=== PATIENT | female | born 1955 | race Caucasian/White ===

== ENCOUNTER 2018-10-07 21:56 | Emergency (ER) | payer BC ==
[2018-10-07] MEDS ORDERED: Ketorolac 30 MG/ML SDV IVPUSH ONE (22:10)
[2018-10-07] MEDS ORDERED: HYDROmorphone 0.5 MG/0.5 ML Syringe IVPUSH ONE ×2 (22:10→23:27)
[2018-10-07] MEDS ORDERED: Sodium Chloride 0.9% 10 ML Syringe FLUSH PRN (22:10)
--- NOTE | 2018-10-07 22:38 | EDM.PDOC ---
ED HPI GENERAL MEDICAL PROBLEM - General Chief Complaint: Back Pain or Injury Stated Complaint: BACK HURTS NOT AN ACCIDENT Time Seen by Provider: 10/07/18 22:10 Source of Information: Reports: Patient, Family History Limitations: Reports: No Limitations - History of Present Illness INITIAL COMMENTS - FREE TEXT/NARRATIVE: 63-year-old female with very intense right flank pain and thoracic spine pain. She had a dull ache in her back for a majority of the day, and tonight had a sudden increase in severe pain. No trauma. No urinary symptoms, shortness of breath or fever. She is extremely uncomfortable. It's painful to move. Also painful to breathe. She is currently being treated for a fungal infection in her lungs. Location: Reports: Back (Right flank) Severity: Severe Associated Symptoms: Reports: No Other Symptoms Flank Pain Score (Numeric/FACES): 10 - Related Data Allergies Allergy/AdvReac Type Severity Reaction Status Date / Time Penicillins Allergy Rash Verified 01/18/15 08:07 Home Meds: Home Meds Acetaminophen [Tylenol Arthritis Pain] 500 mg PO DAILY 10/07/18 [History] Albuterol [Ventolin 2 MG/5 ML] 3 ml INH ASDIRECTED 10/07/18 [History] Albuterol [Ventolin HFA] 10/07/18 [History] Aspirin 325 mg PO DAILY 10/07/18 [History] Calcium Carbonate [Calci-Chew] 500 mg PO DAILY 10/07/18 [History] Celecoxib 200 mg PO BID 10/07/18 [History] Doxycycline [Vibramycin] 50 mg PO DAILY 10/07/18 [History] Fluticasone/Salmeterol [Advair Hfa 230-21 Mcg Inhaler] 2 puff INH BID 10/07/18 [ History] L.acidoph,Paracasei, B.lactis [Probiotic] 1 cap PO DAILY 10/07/18 [History] Lutein 20 mg PO DAILY 10/07/18 [History] Multivitamin [One Daily] 1 tab PO DAILY 10/07/18 [History] Posaconazole [Noxafil] 300 mg PO DAILY 10/07/18 [History] Ranitidine HCl [Zantac] 150 mg PO BID 10/07/18 [History] Past Medical History Respiratory History: Reports: Asthma Other Respiratory History: nodules. Aspergillosis Genitourinary History: Reports: Renal Calculus Musculoskeletal History: Reports: Osteoarthritis - Past Surgical History Musculoskeletal Surgical History: Reports: Knee Replacement Social & Family History - Tobacco Use Smoking Status *Q: Never Smoker - Caffeine Use Caffeine Use: Reports: None - Recreational Drug Use Recreational Drug Use: No ED ROS GENERAL - Review of Systems Review Of Systems: See Below Constitutional: Denies: Fever, Chills Respiratory: Reports: Shortness of Breath, Cough, Other (History of asthma and a fungal infection in her lungs) Cardiovascular: Denies: Chest Pain GI/Abdominal: Reports: Other (Reflux, esophageal burning for the last several days). Denies: Nausea, Vomiting : Reports: Flank Pain. Denies: Dysuria, Frequency, Urgency Musculoskeletal: Reports: Back Pain, Other (Bilateral knee replacement last fall ) Skin: Reports: No Symptoms. Denies: Rash Neurological: Denies: Headache, Paresthesia Psychiatric: Reports: No Symptoms ED EXAM, UPPER BACK/NECK PAIN - Physical Exam Exam: See Below Exam Limited By: No Limitations General Appearance: Alert, Severe Distress (Initially on arrival she couldn't get comfortable, significant pain) Head Exam: Atraumatic Cardiovascular/Respiratory: Regular Rate, Rhythm GI/Abdominal: Tender (Very tender to palpation across the right abdomen, guarding but no rebound tenderness or left-sided abdominal pain) Back Exam: Other (Exquisitely tender to palpation along the right parathoracic spine muscles) Neurologic: Alert, Oriented x 3 Psychiatric: Anxious Skin Exam: Normal Color, Warm/Dry, Other (No rash over the painful area) Course - Vital Signs Last Recorded V/S: Last Vital Signs Temp 97.5 F 10/07/18 22:22 Pulse 86 10/07/18 22:45 Resp 18 10/07/18 22:45 BP 148/80 H 10/07/18 22:45 Pulse Ox 97 10/07/18 22:45 - Orders/Labs/Meds Orders: Active Orders 24 hr Category Date Time Status Saline Lock Insert [OM.PC] Routine Oth 10/07/18 22:10 Ordered Labs: Laboratory Tests 10/07/18 10/07/18 Range/Units 22:20 22:20 WBC 12.6 H (4.5-11.0) K/uL RBC 4.30 (3.30-5.50) M/uL Hgb 12.7 (12.0-15.0) g/dL Hct 40.0 (36.0-48.0) % MCV 93 (80-98) fL MCH 30 (27-31) pg MCHC 32 (32-36) % Plt Count 260 (150-400) K/uL Neut % (Auto) 81 H (36-66) % Lymph % (Auto) 8 L (24-44) % [place] % (Auto) 11 H (2-6) % Eos % (Auto) 1 L (2-4) % Baso % (Auto) 0 (0-1) % Sodium 140 (140-148) mmol/L Potassium 4.3 (3.6-5.2) mmol/L Chloride 103 (100-108) mmol/L Carbon Dioxide 27 (21-32) mmol/L Anion Gap 9.8 (5.0-14.0) mmol/L BUN 25 H (7-18) mg/dL Creatinine 0.7 (0.6-1.0) mg/dL Est Cr Clr Drug Dosing 60.43 mL/min Estimated GFR (MDRD) > 60 (>60) Glucose 138 H (74-106) mg/dL Calcium 9.6 (8.5-10.1) mg/dL Total Bilirubin 0.5 (0.2-1.0) mg/dL AST 24 (15-37) U/L ALT 29 (12-78) U/L Alkaline Phosphatase 87 (46-116) U/L Total Protein 7.2 (6.4-8.2) g/dL Albumin 3.7 (3.4-5.0) g/dL Globulin 3.5 (2.3-3.5) g/dL Albumin/Globulin Ratio 1.1 L (1.2-2.2) Meds: Medications Discontinued Medications Generic Name Dose Route Start Last Admin Trade Name Freq PRN Reason Stop Dose Admin Hydromorphone HCl 0.5 mg 10/07/18 22:10 10/07/18 22:21 Dilaudid IVPUSH 10/07/18 22:11 0.5 mg ONETIME ONE Administration Hydromorphone HCl 0.5 mg 10/07/18 23:27 10/07/18 23:31 Dilaudid IVPUSH 10/07/18 23:28 0.5 mg ONETIME ONE Administration Ketorolac Tromethamine 30 mg 10/07/18 22:10 10/07/18 22:19 Toradol IVPUSH 10/07/18 22:11 30 mg ONETIME ONE Administration Sodium Chloride 10 ml 10/07/18 22:10 10/07/18 22:20 Saline Flush FLUSH 10 ml ASDIRECTED PRN Administration Keep Vein Open - Re-Assessments/Exams Free Text/Narrative Re-Assessment/Exam: 10/07/18 22:57 CBC and CMP were obtained. CMP was normal other than a mildly elevated BUN. White count was mildly elevated but hemoglobin was normal. CT the abdomen and pelvis without contrast was obtained. She was given 0.5 mg of Dilaudid and 30 mg of IV Toradol. 10/07/18 23:23 CT showed no findings that would cause pain. After the medications she felt much better. There was still some discomfort. She was given a second 0.5 mg of Dilaudid IV, and will be discharged with oral Toradol and 10 Percocet to use for extra pain control. Increase activity as tolerated and return if worsening. Departure - Departure Time of Disposition: 23:47 Disposition: Home, Self-Care 01 Condition: Fair Clinical Impression: Acute thoracic back pain Qualifiers: Back pain laterality: right Qualified Code(s): M54.6 - Pain in thoracic spine - Discharge Information Instructions: Back Pain, Adult, [id number] Referrals: Jean-Claude Raymond MD [Primary Care Provider] - Forms: ED Department Discharge Care Plan Goals: Increase activity as tolerated, take ketorolac every 6-8 hours over the next several days and add Percocet for extra pain control if needed. Return anytime if worsening or concerns. - My Orders Last 24 Hours: My Active Orders 10/07/18 22:10 Saline Lock Insert [OM.PC] Routine - Assessment/Plan Last 24 Hours: My Active Orders 10/07/18 22:10 Saline Lock Insert [OM.PC] Routine
--- NOTE | 2018-10-07 22:56 | CRLCT ---
INDICATION: Right flank pain TECHNIQUE: CT Abdomen and pelvis without i.v. contrast. Coronal and sagittal reformats were obtained. COMPARISON: None FINDINGS: Lower chest: There is an irregular region of consolidation with central air bronchogram seen in the anterior right lower lobe. Liver: Unremarkable. Spleen: Unremarkable. Pancreas: Unremarkable. Gallbladder: Unremarkable. Kidney: Multiple intrarenal stones are present bilaterally measuring up to 7 mm. No evidence of renal obstruction seen. There is a hypodense lesion in the midzone of the left kidney measuring 1 cm, incompletely characterized without intravenous contrast. Adrenal: Unremarkable. Bowel: Moderate amount of stool is present throughout the colon which may be due to chronic constipation. Small bowel loops are present within the right ischiorectal fossa, consistent with an enterocele. No bowel obstruction is identified. The appendix is not visualized Vascular: Unremarkable. Lymph: Unremarkable. Peritoneum: Unremarkable. No pneumoperitoneum is seen. No significant ascites is noted. Pelvis: Unremarkable. Soft tissue: Unremarkable. Bone: Moderate diffuse osteopenia is noted. IMPRESSIONS: 1. There is an irregular region of consolidation with central air bronchogram seen in the anterior right lower lobe. Follow-up outpatient chest CT in 2-3 months is recommended to document stability or resolution. 2. Multiple intrarenal stones are present bilaterally measuring up to 7 mm. No evidence of renal obstruction seen. Dictated by Ángel Torres MD @ 10/07/2018 10:54:40 PM Please note that all CT scans at this facility use dose modulation, iterative reconstruction, and/or weight-based dosing when appropriate to reduce radiation dose to as low as reasonably achievable. Dictated by: Ángel Torres MD @ 10/07/2018 22:54:47 (Electronically Signed)
== END 2018-10-07 23:47 | disposition home or self-care (01) ==
LOC: JP.ED 21:56
DX: M54.6 Pain in thoracic spine (principal); J45.909 Unspecified asthma, uncomplicated; Z88.0 Allergy status to penicillin; Z79.899 Other long term (current) drug therapy; Z79.82 Long term (current) use of aspirin
CPT/HCPCS: 36415; 74176; 80053; 85025; 96374; 96375; 99284; J1170; J1885

== ENCOUNTER 2019-02-23 15:40 | Emergency (ER) | payer BC ==
[2019-02-23] MEDS ORDERED: fentaNYL 100 MCG/2 ML SDV IVPUSH ONE ×2 (15:56→17:15)
--- NOTE | 2019-02-23 16:01 | EDM.PDOC ---
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) (fentanyl by ambulance) Left Knee Pain Score (Numeric/FACES): 5 - Related Data Allergies Allergy/AdvReac Type Severity Reaction Status Date / Time levofloxacin [From Levaquin] Allergy Pain Verified 02/23/19 15:46 Penicillins Allergy Rash Verified 01/18/15 08:07 Home Meds: Home Meds Albuterol [Ventolin 2 MG/5 ML] 3 ml INH ASDIRECTED 10/07/18 [History] Albuterol [Ventolin HFA] 2 puff INH ASDIRECTED 10/07/18 [History] Calcium Carbonate [Calci-Chew] 500 mg PO DAILY 10/07/18 [History] Celecoxib 200 mg PO BID 10/07/18 [History] Doxycycline [Vibramycin] 50 mg PO DAILY 10/07/18 [History] Fluticasone/Salmeterol [Advair Hfa 230-21 Mcg Inhaler] 2 puff INH BID 10/07/18 [ History] L.acidoph,Paracasei, B.lactis [Probiotic] 1 cap PO DAILY 10/07/18 [History] Lutein 20 mg PO DAILY 10/07/18 [History] Multivitamin [One Daily] 1 tab PO DAILY 10/07/18 [History] Posaconazole [Noxafil] 200 mg PO DAILY 10/07/18 [History] raNITIdine HCl [Zantac] 150 mg PO BID 10/07/18 [History] Acetaminophen/HYDROcodone [[place] 325-5 MG] 1 tab PO Q6H PRN #15 tab 02/23/19 [Rx ] Sulfamethoxazole/Trimethoprim [Bactrim Ds Tablet] 1 each PO BID #10 tablet 02/23 [Rx] Past Medical History Respiratory History: Reports: Asthma Other Respiratory History: nodules. Aspergillosis Genitourinary History: Reports: Renal Calculus Musculoskeletal History: Reports: Osteoarthritis - Past Surgical History Musculoskeletal Surgical History: Reports: Knee Replacement Social & Family History - Tobacco Use Smoking Status *Q: Never Smoker - Caffeine Use Caffeine Use: Reports: None - Recreational Drug Use Recreational Drug Use: No Review of Systems - Review of Systems Review Of Systems: See Below Constitutional: Reports: No Symptoms Respiratory: Reports: No Symptoms Cardiovascular: Reports: No Symptoms GI/Abdominal: Reports: No Symptoms Genitourinary: Reports: No Symptoms Musculoskeletal: Reports: Other (left knee pain) Skin: Reports: Other (laceration to the left patella) Neurological: Reports: No Symptoms Psychiatric: Reports: No Symptoms ED EXAM, GENERAL - Physical Exam Exam: See Below Exam Limited By: No Limitations General Appearance: Alert, WD/WN, No Apparent Distress Head: Atraumatic, Normocephalic Neck: Normal Inspection, Supple Respiratory/Chest: No Respiratory Distress, Lungs Clear, Normal Breath Sounds Cardiovascular: Normal Peripheral Pulses, Regular Rate, Rhythm Peripheral Pulses: 4+: Posterior Tibial (L), Posterior Tibial (R), Dorsalis Pedis (L), Dorsalis Pedis (R) Back Exam: Normal Inspection, Full Range of Motion Extremities: Other (lower left, knee is swollen, laceration present; unable to move without significant pain) ED TRAUMA EXTREMITY PROCEDURES - Laceration/Wound Repair Left Midline Knee Lac/Wound Length In cm: 2.5 Appearance: Superficial Distal NVT: Neuro & Vascular Intact, No Tendon Injury Anesthetic Type: Local Local Anesthesia - Lidocaine (Xylocaine): 1% with EPI Local Anesthetic Volume: 5cc Skin Prep: Chlorhexidine (Hibiciens), Saline, Sterile Drape Exploration/Debridement/Repair: Wound Explored, In a Bloodless Field, Explored to Base, No Foreign Material Found, Wound Margins Revised Closed With: Sutures, Steri-Strips Suture Size: 4-0 Suture Type: Nylon, Interrupted # of Sutures: 7 Tetanus Status Addressed: Yes Complications: No Course - Vital Signs Last Recorded V/S: Last Vital Signs Temp 97.4 F 02/23/19 16:16 Pulse 89 02/23/19 16:16 Resp 18 02/23/19 16:16 BP 147/66 H 02/23/19 16:16 Pulse Ox 96 02/23/19 16:16 - Orders/Labs/Meds Meds: Medications Discontinued Medications Generic Name Dose Route Start Last Admin Trade Name Aria PRN Reason Stop Dose Admin Bacitracin 1 dose 02/23/19 17:01 02/23/19 17:11 Bacitracin Oint 1 Gm TOP 02/23/19 17:02 Not Given ONETIME ONE Fentanyl 50 mcg 02/23/19 15:56 02/23/19 16:03 Sublimaze IVPUSH 02/23/19 15:57 50 mcg ONETIME ONE Administration Fentanyl 25 mcg 02/23/19 17:15 02/23/19 18:52 Sublimaze IVPUSH 02/23/19 17:16 25 mcg ONETIME ONE Administration Lidocaine/Epinephrine 5 ml 02/23/19 16:02 02/23/19 17:04 Xylocaine 1% With Epinephrine 1:100,000 SUBCUT 02/23/19 16:03 5 ml ONETIME ONE Administration Departure - Departure Time of Disposition: 17:57 Disposition: Home, Self-Care 01 Condition: Good Clinical Impression: Laceration of knee, left Joint effusion of knee Qualifiers: Laterality: left Qualified Code(s): M25.462 - Effusion, left knee - Discharge Information *PRESCRIPTION DRUG MONITORING PROGRAM REVIEWED*: Yes *COPY OF PRESCRIPTION DRUG MONITORING REPORT IN PATIENT ERI: No Prescriptions: Acetaminophen/HYDROcodone [[place] 325-5 MG] 1 tab PO Q6H PRN #15 tab PRN Reason: Pain Sulfamethoxazole/Trimethoprim [Bactrim Ds Tablet] 1 each PO BID #10 tablet Instructions: Stitches, Whiting, or Adhesive Wound Closure, [id number] Referrals: PCP,None [Primary Care Provider] - Forms: ED Department Discharge Additional Instructions: Please follow up with ortho; recommend by end of the week Call with questions Return if symptoms worsen. - Problem List & Annotations (1) Joint effusion of knee Status: Acute Priority: Medium Qualifiers: Laterality: left Qualified Code(s): M25.462 - Effusion, left knee (2) Laceration of knee, left SNOMED Code(s): 60815057969023193 Code(s): S81.012A - LACERATION WITHOUT FOREIGN BODY, LEFT KNEE, INIT ENCNTR Status: Acute - Problem List Review Problem List Initiated/Reviewed/Updated: Yes
[2019-02-23] MEDS ORDERED: Lidocaine 1% with EPINEPHrine 1:100,000 50 ML MDV SUBCUT ONE (16:02)
[2019-02-23] MEDS: Bacitracin Oint 1 GM U/D Packet TOP ONE ×2 (17:04→17:11)
--- NOTE | 2019-02-23 17:28 | CRLCR ---
INDICATION: Fell 3 duct. Unable to bear weight. Pain and swelling. TECHNIQUE: Three portable images of the left knee. COMPARISON: None. FINDINGS: Joint effusion with fluid in the suprapatellar bursa. Total knee arthroplasty. Prosthetic components well-seated and aligned. No fracture. IMPRESSION: 1. Joint effusion. 2. Uncomplicated left total knee arthroplasty. Dictated by Gerardo Pompa MD @ Feb 23 2019 5:24PM Signed by Dr. Gerardo Pompa @ Feb 23 2019 5:26PM
== END 2019-02-23 19:16 | disposition home or self-care (01) ==
LOC: JP.ED 15:40
DX: S81.012A Laceration without foreign body, left knee, initial encounter (principal); M25.462 Effusion, left knee; J45.909 Unspecified asthma, uncomplicated; Z79.899 Other long term (current) drug therapy; Z88.0 Allergy status to penicillin; Z88.1 Allergy status to other antibiotic agents; W19.XXXA Unspecified fall, initial encounter
CPT/HCPCS: 12001; 73562; 96374; 96376; 99283; J3010

== ENCOUNTER 2020-10-03 05:30 | Day surgery (SDC) | payer BC ==
[2020-10-03] MEDS: Dextrose 5%-Lactated Ringers 1,000 ML IV SCH (06:25)
[2020-10-03] MEDS ORDERED: fentaNYL 100 MCG/2 ML SDV ONE (07:10)
[2020-10-03] MEDS ORDERED: Propofol 200 MG/20 ML SDV ONE (07:10)
[2020-10-03] MEDS ORDERED: Midazolam 1 MG/ML 2 ML SDV ONE (07:10)
[2020-10-03] MEDS: Glycopyrrolate 0.2 MG/ML 2 ML SDV IVPUSH ONE (07:21)
--- NOTE | 2020-10-04 09:19 | OR ---
DATE OF PROCEDURE: 10/03/2020 SURGEON: Dannie Ordonez MD PREOPERATIVE DIAGNOSIS: Heartburn and epigastric discomfort. POSTOPERATIVE DIAGNOSIS: Heartburn and epigastric discomfort associated with: 1. Small hiatal hernia with mild inflammation of esophagogastric junction. 2. Mild diffuse redness of gastric mucosa. OPERATIVE PROCEDURE: Esophagogastroduodenoscopy with: 1. Biopsies of esophagogastric junction for histologic evaluation. 2. Biopsies of antrum for CLOtest. ANESTHESIA: IV sedation. INDICATION FOR PROCEDURE: This is a 65-year-old female presenting with ongoing problems with heartburn as well as some ongoing epigastric discomfort and underlying nausea. She presently is on Protonix 40 mg daily along with Pepcid 40 mg daily. 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 Potential risks including bleeding and perforation were discussed and the patient wishes to proceed. DETAILS OF PROCEDURE: The patient was taken to the operating room and placed in a left lateral decubitus position. IV sedation was administered after which the upper GI endoscope was passed orally through the length of the esophagus into the stomach with retroflexion view of the fundus and thereafter through the pyloric channel and into the proximal duodenum. Findings included normal hypopharynx, larynx, upper esophageal sphincter and esophageal body. At the EG junction, there was a small hiatal hernia present with some very mild appearing inflammation of the distal esophagus. No stricturing was present. Within the stomach, there was a very mild diffuse redness present, no erosions or ulcers were seen. Pyloric channel was wide open. The duodenum had some lymphatic vessels visible on the surface, which would be a normal variant, otherwise was unremarkable. At this point, biopsies were obtained from the antrum and sent for CLOtest for H. pylori. Multiple biopsies were then obtained from the esophagogastric junction and sent for histologic evaluation. No bleeding from the biopsy sites was seen and the procedure was then concluded. It was felt the patient might benefit from taking something such as Carafate. We did have pharmacy look at her medication list with regard to medication reactions with Carafate and it was identified that Fosamax, doxycycline and calcium that the patient is on would have some fair absorption with the Carafate and recommendation initially with regard to medications would be to avoid taking them within 2 hours either before or after the Carafate. The patient therefore was given a prescription for Carafate 1 gram p.o. q.i.d. with the above timing of medications being recommended. We also had Dietary see the patient to initiate an approach in terms of empirical experimentation of dietary intake to see what if any food types seem to be causing increased symptoms. The patient otherwise will see Dr. Raymond in followup later this month. Dannie Ordonez MD /[id number]
== END 2020-10-03 09:11 | disposition home or self-care (01) ==
LOC: JP.SDS 05:30
PROVIDERS: ATTEND Surgery
DX: K29.50 Unspecified chronic gastritis without bleeding (principal); K44.9 Diaphragmatic hernia without obstruction or gangrene
CPT/HCPCS: 87081; J2250; J2704; J3010; J3490; J7121

== ENCOUNTER 2022-01-14 14:47 | Emergency (ER) | payer BC | END 2022-01-14 16:59 | disposition home or self-care (01) | LOC: JP.ED 14:47 | DX: U07.1 COVID-19 (principal); J98.4 Other disorders of lung; J45.909 Unspecified asthma, uncomplicated; B44.1 Other pulmonary aspergillosis; C34.91 Malignant neoplasm of unspecified part of right bronchus or lung; K21.9 Gastro-esophageal reflux disease without esophagitis; Z79.899 Other long term (current) drug therapy; Z88.0 Allergy status to penicillin; Z88.1 Allergy status to other antibiotic agents; Z91.011 Allergy to milk products; Z91.018 Allergy to other foods | CPT/HCPCS: 36415; 71045; 71045-26; 80053; 84145; 85025; 85379; 85651; 99283; 99285-25 ==

== ENCOUNTER 2023-08-07 06:46 | Day surgery (SDC) | payer MEDICARE, BC ==
[2023-08-07] MEDS ORDERED: Propofol 200 MG/20 ML SDV ONE (07:21)
[2023-08-07] MEDS ORDERED: fentaNYL 50 MCG/ML SDV ONE (07:21)
[2023-08-07] MEDS ORDERED: Lactated Ringers 1,000 ML IV SCH (07:30)
[2023-08-07] MEDS ORDERED: Sodium Chloride 0.9% 75 ML IV ONE (09:13)
[2023-08-07] MEDS ORDERED: Sodium Chloride 0.9% 10 ML Syringe FLUSH PRN (09:13)
[2023-08-07] MEDS ORDERED: Iopamidol 612 MG/ML 100 ML Bottle IV PRN (09:13)
== END 2023-08-07 09:35 | disposition home or self-care (01) ==
LOC: JP.SDS 06:46
PROVIDERS: ATTEND Student in an Organized Health Care Education/Training Program
DX: K29.50 Unspecified chronic gastritis without bleeding (principal); K31.7 Polyp of stomach and duodenum; J45.909 Unspecified asthma, uncomplicated
CPT/HCPCS: 43239; 74177; 88305; J2704; J3010; J3490; J7120; Q9967

== ENCOUNTER 2024-10-19 18:08 | Emergency (ER) | payer MEDICARE, BC ==
[2024-10-19 19:40] LABS: BASOPHILS PERCENT AUTO 0.2 % (0.1-1.3); EOSINOPHILS PERCENT AUTO 2.4 % (0.0-5.4); HEMATOCRIT 29.1 % (34.3-46.0); HEMOGLOBIN 9.5 g/dL (11.2-15.5); IMMATURE GRAN PERCENT AUTO 0.2 % (0.0-0.7); LYMPHOCYTES ABSOLUTE AUTO 0.68 K/uL (0.8-3.3); LYMPHOCYTES PERCENT AUTO 16.2 % (11.4-47.7); MEAN CORPUSCULAR HEMOGLOBIN 28.4 pg (31.6-35.5); MEAN CORPUSCULAR HGB CONC 32.6 g/dL (31.6-35.5); MEAN CORPUSCULAR VOLUME 86.9 fL (81.4-99.0); MONOCYTES ABSOLUTE AUTO 0.43 K/uL (0.20-0.90); MONOCYTES PERCENT AUTO 10.2 % (3.3-12.6); NEUTROPHILS ABSOLUTE AUTO 2.98 K/uL (1.0-7.6); NEUTROPHILS PERCENT AUTO 70.8 % (40.0-78.1); PLATELET COUNT,PLT 215 K/uL (130-375); RED BLOOD CELL COUNT 3.35 M/uL (3.77-5.24); WHITE BLOOD CELL COUNT,WBC 4.2 K/uL (3.2-11.0)
[2024-10-19 19:41] LABS: BASOPHILS ABSOLUTE AUTO 0.01 K/uL (0.00-0.10); IMMATURE GRAN ABSOLUTE AUTO 0.01 K/uL (0.00-0.23)
[2024-10-19 20:02] LABS: ALANINE AMINOTRANSFERASE,ALT 36 U/L (12-78); ALBUMIN 3.3 g/dL (3.4-5.0); ALKALINE PHOSPHATASE 57 U/L (46-116); ASPARTATE AMNIOTRANSFERASE,AST 24 U/L (15-37); BILIRUBIN TOTAL 0.3 mg/dL (0.2-1.0); BLOOD UREA NITROGEN,BUN 30 mg/dL (7-18); CARBON DIOXIDE,CO2 26 mmol/L (21-32); CHLORIDE,CL 107 mmol/L (100-108); CREATINE KINASE,CK 137 U/L (26-192); CREATININE 0.6 mg/dL (0.6-1.0); EST CRCL DRUG DOSING (CG) 50.42 mL/min; ESTIMATED GFR 98 mL/min (>60); GLUCOSE RANDOM 96 mg/dL (74-106); POTASSIUM,K 4.1 mmol/L (3.6-5.2); PROTEIN TOTAL,TP 6.5 g/dL (6.4-8.2); SODIUM,NA 139 mmol/L (140-148)
[2024-10-19 20:03] LABS: ANION GAP 10.1 mmol/L (5.0-14.0); C-REACTIVE PROTEIN < 0.50 mg/dL (<0.50)
[2024-10-19] MEDS: Methocarbamol 500 MG Tab PO ONE (20:57)
== END 2024-10-19 21:37 | disposition designated cancer center or children's hospital (05) ==
LOC: JP.ED 18:08
DX: M99.09 Segmental and somatic dysfunction of abdomen and other regions (principal); J45.909 Unspecified asthma, uncomplicated; K21.9 Gastro-esophageal reflux disease without esophagitis; E78.00 Pure hypercholesterolemia, unspecified; Z88.0 Allergy status to penicillin; Z88.1 Allergy status to other antibiotic agents; Z91.011 Allergy to milk products; Z91.018 Allergy to other foods; Z88.8 Allergy status to other drugs, medicaments and biological substances; Z79.899 Other long term (current) drug therapy; Z86.16 Personal history of COVID-19
CPT/HCPCS: 36415; 80053; 82550; 83690; 85025; 86140; 99284; A9270

== ENCOUNTER 2025-01-01 13:57 | Emergency (ER) | payer MEDICARE, BC ==
[2025-01-01 14:40] LABS: HEMATOCRIT 30.3 % (34.3-46.0); HEMOGLOBIN 9.6 g/dL (11.2-15.5); IMMATURE GRAN ABSOLUTE AUTO 0.03 K/uL (0.00-0.23); IMMATURE GRAN PERCENT AUTO 0.6 % (0.0-0.7); LYMPHOCYTES ABSOLUTE AUTO 0.27 K/uL (0.8-3.3); MEAN CORPUSCULAR HEMOGLOBIN 27.7 pg (31.6-35.5); MEAN CORPUSCULAR HGB CONC 31.7 g/dL (31.6-35.5); MEAN CORPUSCULAR VOLUME 87.6 fL (81.4-99.0); MONOCYTES ABSOLUTE AUTO 0.33 K/uL (0.20-0.90); MONOCYTES PERCENT AUTO 6.1 % (3.3-12.6); NEUTROPHILS ABSOLUTE AUTO 4.77 K/uL (1.0-7.6); NEUTROPHILS PERCENT AUTO 88.3 % (40.0-78.1); PLATELET COUNT,PLT 330 K/uL (130-375); RED BLOOD CELL COUNT 3.46 M/uL (3.77-5.24); WHITE BLOOD CELL COUNT,WBC 5.4 K/uL (3.2-11.0)
[2025-01-01] MEDS: Albuterol/Ipratropium 3.0-0.5 MG/3 ML Neb Soln NEB ONE ×2 (14:40)
[2025-01-01] MEDS: Levalbuterol HCl 1.25 MG/3 ML Neb ONE (14:40)
[2025-01-01] MEDS: Albuterol/Ipratropium 3.0-0.5 MG/3 ML Neb Soln ONE (14:40)
[2025-01-01 14:41] LABS: BASE EXCESS VENOUS 5.9 mm/L; BICARBONATE,VENOUS 31.2 mmol/L; METHEMOGLOBIN 0.8 %; OXYHEMOGLOBIN 58.3 %; PCO2 VENOUS 51.7 mm/Hg; PH,VENOUS 7.398 (7.350-7.450); TOTAL HEMOGLOBIN 10.2 g/dL (12.0-16.0)
[2025-01-01 14:42] LABS: PO2 VENOUS 34.3 mm/Hg
[2025-01-01] MEDS: Morphine 2 MG/ML SYRINGE IVPUSH ONE (14:44)
[2025-01-01] MEDS: Levalbuterol HCl 1.25 MG/3 ML Neb NEB ONE ×2 (15:00→15:24)
[2025-01-01 15:07] LABS: A/G RATIO 0.8 (1.2-2.2); ALANINE AMINOTRANSFERASE,ALT 40 U/L (12-78); ALKALINE PHOSPHATASE 68 U/L (46-116); ASPARTATE AMNIOTRANSFERASE,AST 17 U/L (15-37); BILIRUBIN TOTAL 0.2 mg/dL (0.2-1.0); BLOOD UREA NITROGEN,BUN 41 mg/dL (7-18); CALCIUM 9.5 mg/dL (8.5-10.1); CARBON DIOXIDE,CO2 33 mmol/L (21-32); CHLORIDE,CL 101 mmol/L (100-108); CREATININE 0.6 mg/dL (0.6-1.0); EST CRCL DRUG DOSING (CG) 50.82 mL/min; ESTIMATED GFR 98 mL/min (>60); GLUCOSE RANDOM 103 mg/dL (74-106); POTASSIUM,K 4.7 mmol/L (3.6-5.2); PRO B-TYPE NATRIUR PEPT,BNPPRO 1983 pg/mL (5-125); PROTEIN TOTAL,TP 6.9 g/dL (6.4-8.2); SODIUM,NA 140 mmol/L (140-148)
[2025-01-01 15:08] LABS: ANION GAP 10.7 mmol/L (5.0-14.0)
[2025-01-01] MEDS: Sodium Chloride 0.9% 10 ML Syringe FLUSH ONE (15:26)
[2025-01-01] MEDS: Sodium Chloride 0.9% 100 ML IV SCH (15:27)
[2025-01-01] MEDS: Iopamidol 755 Mg/ML 100 ML Bottle IV SCH (15:27)
== END 2025-01-01 17:32 | disposition home or self-care (01) ==
LOC: JP.ED 13:57
DX: R06.02 Shortness of breath (principal); E78.00 Pure hypercholesterolemia, unspecified; K21.9 Gastro-esophageal reflux disease without esophagitis; J45.909 Unspecified asthma, uncomplicated; Z88.0 Allergy status to penicillin; Z88.8 Allergy status to other drugs, medicaments and biological substances; Z91.018 Allergy to other foods; Z91.011 Allergy to milk products; Z79.899 Other long term (current) drug therapy; Z79.51 Long term (current) use of inhaled steroids; Z86.16 Personal history of COVID-19
CPT/HCPCS: 36415; 71046; 71275; 80053; 82803; 83880; 85025; 94640; 96374; 99285; J2270; J7612; Q9967; 99284

== ENCOUNTER 2025-01-08 10:30 | Emergency (ER) | payer MEDICARE, BC ==
[2025-01-08] MEDS: Morphine 4 MG/ML Syringe IVPUSH ONE (11:36)
[2025-01-08] MEDS: Albuterol 0.083% 2.5 MG/3 ML Neb Soln NEB ONE ×2 (11:36→13:45)
[2025-01-08] MEDS: methylPREDNISolone Sodium Succinate 125 MG/2 ML SDV IVPUSH ONE (11:36)
[2025-01-08 11:48] LABS: BASE EXCESS ARTERIAL 4.8 mm/L; BICARBONATE,ARTERIAL 28.5 mmol/L (22.0-26.0); CARBOXYHEMOGLOBIN 2.2 % (0.0-1.6); METHEMOGLOBIN 0.9 %; O2 SATURATION ARTERIAL 99.2 % (95.0-98.0); OXYHEMOGLOBIN 96.1 %; PCO2 ARTERIAL 40.1 mmHg (35.0-42.0); TOTAL HEMOGLOBIN 9.7 g/dL (12.0-16.0)
[2025-01-08 11:50] LABS: BASOPHILS ABSOLUTE AUTO 0.02 K/uL (0.00-0.10); BASOPHILS PERCENT AUTO 0.1 % (0.1-1.3); HEMATOCRIT 29.4 % (34.3-46.0); HEMOGLOBIN 9.3 g/dL (11.2-15.5); IMMATURE GRAN ABSOLUTE AUTO 0.09 K/uL (0.00-0.23); IMMATURE GRAN PERCENT AUTO 0.7 % (0.0-0.7); LYMPHOCYTES ABSOLUTE AUTO 0.13 K/uL (0.8-3.3); MEAN CORPUSCULAR HEMOGLOBIN 28.2 pg (31.6-35.5); MEAN CORPUSCULAR HGB CONC 31.6 g/dL (31.6-35.5); MEAN CORPUSCULAR VOLUME 89.1 fL (81.4-99.0); MONOCYTES ABSOLUTE AUTO 0.74 K/uL (0.20-0.90); MONOCYTES PERCENT AUTO 5.4 % (3.3-12.6); NEUTROPHILS ABSOLUTE AUTO 12.68 K/uL (1.0-7.6); NEUTROPHILS PERCENT AUTO 92.8 % (40.0-78.1); PLATELET COUNT,PLT 275 K/uL (130-375); WHITE BLOOD CELL COUNT,WBC 13.7 K/uL (3.2-11.0)
[2025-01-08 12:10] LABS: A/G RATIO 0.6 (1.2-2.2); ALANINE AMINOTRANSFERASE,ALT 29 U/L (12-78); ALBUMIN 2.6 g/dL (3.4-5.0); ALKALINE PHOSPHATASE 89 U/L (46-116); ANION GAP 7.1 mmol/L (5.0-14.0); ASPARTATE AMNIOTRANSFERASE,AST 19 U/L (15-37); BILIRUBIN TOTAL 0.2 mg/dL (0.2-1.0); BLOOD UREA NITROGEN,BUN 43 mg/dL (7-18); CALCIUM 9.6 mg/dL (8.5-10.1); CARBON DIOXIDE,CO2 32 mmol/L (21-32); CHLORIDE,CL 102 mmol/L (100-108); CREATININE 0.6 mg/dL (0.6-1.0); EST CRCL DRUG DOSING (CG) 48.86 mL/min; ESTIMATED GFR 98 mL/min (>60); GLUCOSE RANDOM 155 mg/dL (74-106); POTASSIUM,K 4.5 mmol/L (3.6-5.2); PROTEIN TOTAL,TP 6.9 g/dL (6.4-8.2); SODIUM,NA 141 mmol/L (140-148)
== END 2025-01-08 14:20 | disposition home or self-care (01) ==
LOC: JP.ED 10:30
DX: J44.1 Chronic obstructive pulmonary disease with (acute) exacerbation (principal); E78.00 Pure hypercholesterolemia, unspecified; J45.909 Unspecified asthma, uncomplicated; K21.9 Gastro-esophageal reflux disease without esophagitis; Z88.8 Allergy status to other drugs, medicaments and biological substances; Z91.011 Allergy to milk products; Z91.018 Allergy to other foods; Z79.899 Other long term (current) drug therapy; Z86.16 Personal history of COVID-19
CPT/HCPCS: 36415; 36600; 71046; 80053; 82803; 85025; 94640; 96374; 96375; 99285; A9270; J2270; J2919

== ENCOUNTER 2025-01-09 13:45 | Emergency (ER) | payer MEDICARE, BC ==
[2025-01-09] MEDS ORDERED: Naloxone 0.4 MG/ML SDV IVPUSH PRN ×2 (14:45→18:10)
[2025-01-09 15:19] LABS: BASOPHILS PERCENT AUTO 0.1 % (0.1-1.3); HEMATOCRIT 29.7 % (34.3-46.0); HEMOGLOBIN 9.3 g/dL (11.2-15.5); IMMATURE GRAN ABSOLUTE AUTO 0.06 K/uL (0.00-0.23); IMMATURE GRAN PERCENT AUTO 0.4 % (0.0-0.7); LYMPHOCYTES ABSOLUTE AUTO 0.17 K/uL (0.8-3.3); LYMPHOCYTES PERCENT AUTO 1.2 % (11.4-47.7); MEAN CORPUSCULAR HEMOGLOBIN 27.8 pg (31.6-35.5); MEAN CORPUSCULAR HGB CONC 31.3 g/dL (31.6-35.5); MEAN CORPUSCULAR VOLUME 88.7 fL (81.4-99.0); MONOCYTES ABSOLUTE AUTO 0.98 K/uL (0.20-0.90); MONOCYTES PERCENT AUTO 6.8 % (3.3-12.6); NEUTROPHILS ABSOLUTE AUTO 13.22 K/uL (1.0-7.6); NEUTROPHILS PERCENT AUTO 91.5 % (40.0-78.1); PLATELET COUNT,PLT 289 K/uL (130-375); RED BLOOD CELL COUNT 3.35 M/uL (3.77-5.24); WHITE BLOOD CELL COUNT,WBC 14.5 K/uL (3.2-11.0)
[2025-01-09 15:20] LABS: BASE EXCESS ARTERIAL 4.4 mm/L; BICARBONATE,ARTERIAL 28.6 mmol/L (22.0-26.0); CARBOXYHEMOGLOBIN 1.8 % (0.0-1.6); O2 SATURATION ARTERIAL 97.2 % (95.0-98.0); OXYHEMOGLOBIN 95.5 %; PCO2 ARTERIAL 42.8 mmHg (35.0-42.0); PO2 ARTERIAL 89.1 mmHg (75.0-100.0); TOTAL HEMOGLOBIN 9.6 g/dL (12.0-16.0)
[2025-01-09 15:22] LABS: METHEMOGLOBIN 0 %
[2025-01-09 15:25] LABS: BASOPHILS ABSOLUTE AUTO 0.02 K/uL (0.00-0.10)
[2025-01-09] MEDS: Sodium Chloride 0.9% 1,000 ML IV ONE (15:34)
[2025-01-09] MEDS: Morphine 4 MG/ML Syringe IVPUSH ONE ×2 (15:34→18:13)
[2025-01-09] MEDS: Albuterol/Ipratropium 3.0-0.5 MG/3 ML Neb Soln NEB ONE ×2 (15:49→18:58)
[2025-01-09 15:57] LABS: A/G RATIO 0.6 (1.2-2.2); ALANINE AMINOTRANSFERASE,ALT 31 U/L (12-78); ALBUMIN 2.5 g/dL (3.4-5.0); ALKALINE PHOSPHATASE 95 U/L (46-116); ANION GAP 11.6 mmol/L (5.0-14.0); ASPARTATE AMNIOTRANSFERASE,AST 20 U/L (15-37); BILIRUBIN TOTAL 0.2 mg/dL (0.2-1.0); BLOOD UREA NITROGEN,BUN 53 mg/dL (7-18); CALCIUM 9.6 mg/dL (8.5-10.1); CARBON DIOXIDE,CO2 28 mmol/L (21-32); CHLORIDE,CL 104 mmol/L (100-108); CREATININE 0.5 mg/dL (0.6-1.0); ESTIMATED GFR 103 mL/min (>60); GLUCOSE RANDOM 133 mg/dL (74-106); MAGNESIUM 2.3 mg/dL (1.8-2.4); POTASSIUM,K 4.3 mmol/L (3.6-5.2); PRO B-TYPE NATRIUR PEPT,BNPPRO 6640 pg/mL (5-125); PROTEIN TOTAL,TP 6.8 g/dL (6.4-8.2); SODIUM,NA 144 mmol/L (140-148); TROPONIN I HIGH SENSITIVITY 41.9 pg/mL (<=60.3)
[2025-01-09] MEDS: Iopamidol 612 MG/ML 100 ML Bottle IV SCH (15:59)
[2025-01-09] MEDS: Sodium Chloride 0.9% 80 ML IV SCH (15:59)
[2025-01-09] MEDS: Albuterol 0.083% 2.5 MG/3 ML Neb Soln NEB ONE (16:14)
[2025-01-09] MEDS: LORazepam 2 MG/ML SDV IVPUSH ONE (19:20)
== END 2025-01-09 20:52 ==
LOC: JP.ED 13:45
DX: J98.4 Other disorders of lung (principal); F41.9 Anxiety disorder, unspecified
CPT/HCPCS: 36415; 36600; 71260; 80053; 82803; 83605; 83735; 83880; 84484; 85025; 85379; 87428; 93005; 94640; 94660; 96361; 96374; 96375; 96376; 99285; A9270; J2060; J2270; J7030; Q9967